=== PATIENT | male | born 1955 | race Asian ===

== ENCOUNTER 2019-03-21 08:12 | Emergency (ER) | payer MEDICAID ==
[~2019-03-21] VITALS: Ht 162.6 cm; Wt 56.7 kg
[2019-03-21 08:18] VITALS: BP_SYST 149
[2019-03-21 08:44] VITALS: BP_SYST 149
== END 2019-03-21 08:44 | disposition home or self-care (01) ==
LOC: SED 08:12
DX: G25.81 Restless legs syndrome (principal); I10 Essential (primary) hypertension; J45.909 Unspecified asthma, uncomplicated
CPT/HCPCS: 99283